=== PATIENT | male | born 2000 | race Two or more races ===

== ENCOUNTER 2025-03-28 10:04 | Emergency (ER) | payer MEDICAID, SELFPAY ==
[2025-03-28 10:20] VITALS: BP 103/58; PULSE 72; RESP 18; TEMP 36.9; O2SAT 97; BMI 29.2
--- NOTE | 2025-03-28 10:34 | XR_ITS ---
Examination: Lumbar spine 2 views TECHNIQUE: Limited study, lateral view lumbar spine lateral coned view lower lumbar spine March 28, 2025 1101 hours INDICATIONS: Injury to the lower back today, lower back pain FINDINGS: No lumbar fracture Moderate disc narrowing L5-S1 No AP view of the lumbar spine IMPRESSION: Limited study No lumbar fracture
[2025-03-28] MEDS: CYCLObenzaPRINE 5 MG TABLET 10 MG PO (10:42)
[2025-03-28] MEDS: KETOROLAC INJ 30 MG/ML VIAL IM (10:43)
--- NOTE | 2025-03-28 11:45 | PD.EDBACK ---
ED Back Injury Pain RME/HPI General Chief Complaint: Back Pain/Injury Stated Complaint: back pain Time Seen by Provider: 03/28/25 10:09 Arrival date/time: 03/28/25 10:04 24-year-old male presents emergency department today for complaint of lower back pain patient ports he is lifting weights today and felt a pulling sensation in his lower back. Limitations: no limitations Related Data Previous Rx's ?Medication ?Instructions ?Recorded famotidine 20 mg tablet (Pepcid) 20 mg PO QDAY #20 tabs 02/17/18 naproxen 500 mg tablet (Naprosyn) 500 mg PO BID #30 tabs 06/03/20 ciprofloxacin HCl 500 mg tablet 500 mg PO BID #10 tabs 02/08/21 metronidazole 500 mg tablet 500 mg PO BID #10 tabs 02/08/21 (Flagyl) cyclobenzaprine 10 mg tablet 10 mg PO TID PRN muscle spasm 10 03/28/25 days #30 tab-caps ibuprofen 800 mg tablet 800 mg PO TID PRN pain #30 tabs 03/28/25 Allergies Allergy/AdvReac Type Severity Reaction Status Date / Time No Known Allergies Allergy Verified 03/28/25 10:07 Review of Systems Review of Systems Systems Reviewed: All systems reviewed, normal except as documented Constitutional Constitutional: Reports system reviewed and no additional complaints, except as documented, Denies fever(s) and Denies headache(s) Eyes Eyes: Reports system reviewed and no additional complaints, except as documented and Denies blurry vision ENT Ears, Nose, Mouth, and Throat: Reports system reviewed and no additional complaints, except as documented, Denies headache(s), Denies nasal congestion and Denies nasal discharge Cardiovascular Cardiovascular: Reports system reviewed and no additional complaints, except as documented, Denies chest pain and Denies dyspnea Respiratory Respiratory: Reports system reviewed and no additional complaints, except as documented, Denies chest congestion, Denies cough and Denies dyspnea Gastrointestinal Gastrointestinal: Reports system reviewed and no additional complaints, except as documented and Denies abdominal pain Musculoskeletal Musculoskeletal: Reports system reviewed and no additional complaints, except as documented, Denies abnormal gait, Reports back pain, Denies numbness, Denies stiffness and Denies tingling Integumentary/Breasts Skin/Breast: Reports system reviewed and no additional complaints, except as documented and Denies rash Neurologic Neurologic: Reports system reviewed and no additional complaints, except as documented, Reports as per HPI, Denies abnormal gait, Denies headache(s), Denies numbness and Denies tingling Past Medical History Past Medical History CARDIAC: Negative Congestive Heart Failure RESPIRATORY: Negative Chronic Obstructive Pulmonary Disease (COPD) GENITOURINARY: Negative Renal Disease ENDOCRINE: Negative Diabetes Mellitus Type 1 or Diabetes Mellitus Type 2 Social History SMOKING STATUS: Never smoker ED Exam General Limitations: Present no limitations General appearance: Present alert and in no apparent distress Head Head exam: Present atraumatic and normocephalic Eye Eye exam: Present normal appearance, PERRL and EOMI; Absent conjunctival injection ENT ENT exam: Present normal exam, normal oropharynx and mucous membranes moist Neck Neck exam: Present normal inspection, full ROM and trachea midline Chest Chest inspection: Present normal inspection and symmetric chest wall rise Respiratory Respiratory exam: Present normal lung sounds bilaterally; Absent respiratory distress Cardiovascular Cardiovascular exam: Present regular rate, normal rhythm and normal heart sounds Abdominal Exam Abdominal exam: Present soft and normal bowel sounds; Absent distention, tenderness, guarding, rebound or rigidity Extremities Exam Extremities exam: Present normal inspection and full ROM Back Exam Back exam: Present normal inspection, full ROM, tenderness, muscle spasm and paraspinal tenderness; Absent CVA tenderness (R) or CVA tenderness (L) Neurological Exam Neurological exam: Present alert, oriented X3 and CN II-XII intact Psychiatric Psychiatric exam: Present normal affect and normal mood Skin Skin exam: Present warm, dry, intact and normal color Course Quality Measures none Orders Category Date Time Status XR lumbar spine 2-3V Stat Exams 03/28/25 10:34 Completed CYCLObenzaPRINE [Flexeril] Med 03/28/25 10:34 Discontinued 10 mg PO X1 ONE Ketorolac Inj [Toradol Inj] Med 03/28/25 10:34 Discontinued 30 mg IM X1 ONE Vital Signs Vital signs: Vital Signs Temperature 98.5 F 03/28/25 10:20 Pulse Rate 72 03/28/25 10:20 Respiratory Rate 18 03/28/25 10:20 Blood Pressure 103/58 L 03/28/25 10:20 Pulse Oximetry (%) 97 03/28/25 10:20 Oxygen Delivery Method Room Air 03/28/25 10:20 o2 sat 97% r.a wnl Back Pain / Injury MDM Narrative MDM Narrative:: 24-year-old male presents emergency department today for complaint of lower back pain patient reports he was lifting weights today and felt a pulling sensation in his lower back. On exam patient well-appearing patient does not appear ill or toxic in no acute distress Imaging obtained no acute emergent findings noted Patient given pain medication here discharged home with pain meds On exam patient walks with steady gait patient reports no saddle anesthesia no loss of bowel or bladder Patient discharged home in no distress to follow-up with primary care doctor in the next 24 to 48 hours and for any worsening symptoms to return to the ER immediately Patient data External records reviewed:: [facility] previous records Clinical information provided by:: patient Social determinants that could affect healthcare access:: none Patient has the following chronic illnesses:: none How is presenting disease/condition affected by chronic disease/condition?: no chronic disease Evaluation data The following diagnostics were reviewed and interpreted by me:: radiology exam(s) Lab and/or radiology exams considered but not ordered:: reviewed by me Interpretation Summary: given Medications / Prescriptions Medications or Prescriptions considered but not ordered:: given Medication administrations:: Medication Administration History Discontinued Medications Cyclobenzaprine HCl (Cyclobenzaprine 5 Mg Tablet) 10 mg PO X1 ONE Stop: 03/28/25 10:35 Last Admin: 03/28/25 10:42 Dose: 10 mg Documented By: FLEX Ketorolac Tromethamine (Ketorolac Inj 30 Mg/Ml Vial) 30 mg IM X1 ONE Stop: 03/28/25 10:35 Last Admin: 03/28/25 10:43 Dose: 30 mg Documented By: FLEX given Consultations Consultation(s) initiated? (list below): No Diagnosis Differential diagnosis back pain/injury: lumbar radiculopathy, sciatica and strain of lumbar region Most likely diagnosis given after review of the tests above:: back pain Admission Indicated Admission indicated?: not indicated Admission Request Was there a request for admission?: No Disposition Plan Disposition Plan: Discharge Discharge Attestation Discharge Attestation: The patient and all family members were given an opportunity to ask questions and understood the discharge instructions. Discharge instructions specifically effects, indications for sooner follow up or return to the emergency department, and the expected course of current diagnosis. Patient condition: Stable Discharge Plan Plan Patient Disposition: HOME (Self Care) Discharge Disposition comment: Stable Prescriptions/Referrals Prescriptions/Med Rec: New cyclobenzaprine 10 mg tablet 10 mg PO TID PRN (Reason: muscle spasm) 10 Days Qty: 30 0RF ibuprofen 800 mg tablet 800 mg PO TID PRN (Reason: pain) Qty: 30 0RF No Action ciprofloxacin HCl 500 mg tablet 500 mg PO BID Qty: 10 0RF metronidazole [Flagyl] 500 mg tablet 500 mg PO BID Qty: 10 0RF famotidine [Pepcid] 20 mg tablet 20 mg PO QDAY Qty: 20 0RF naproxen [Naprosyn] 500 mg tablet 500 mg PO BID Qty: 30 0RF Referrals: Bernardino Mora MD [Primary Care Provider] - 03/29/25 Problem List Clinical Impression: Strain of lumbar region Patient/Caregiver Discharge Instructions Education Materials: ED Back Sprain/Strain Additional Instructions: Please follow up with your primary care doctor in the next 24-48hrs for any worsening symptoms return here immediately If your pain persist or worsens will have to have an outpatient MRI for further evaluation Print Language: Lithuanian Stand Alone Forms: Marley Award Info., Work/School Release, Patient Portal Info Letter PA/[employer] Supervising Physician LINNEA/ANDRE Supervising Physician: Dr maxwell
== END 2025-03-28 12:00 | disposition home or self-care (01) ==
PROVIDERS: Emergency Provider Family Medicine; PCP Family Medicine
DX: S39.012A Strain of muscle, fascia and tendon of lower back, initial encounter (principal); X50.0XXA Overexertion from strenuous movement or load, initial encounter; Y93.B9 Activity, other involving muscle strengthening exercises
CPT/HCPCS: 72100; 96372; 99283; J1885; A9270